=== PATIENT | female | born 1935 | race Caucasian/White ===

== ENCOUNTER 2018-07-08 13:44 | Inpatient (IN) | payer MEDICARE, BC ==
[~2018-07-08] VITALS: Ht 160 cm; Wt 57.0 kg
[2018-07-08] VITALS (25 sets, daily range): BP systolic 78–115; BP diastolic 42–93; BMI 22.4
--- NOTE | ~2018-07-08 | EC ---
PATIENT:KEVIN YOUSSEF DATE OF SERVICE: 07/08/18 SEX: F MEDICAL RECORD: [id number] DATE OF : 35 LOCATION:D. D.212 AGE OF PATIENT: 83 ADMISSION DATE: 07/08/18 REFERRING PHYSICIAN: INTERPRETING PHYSICIAN: FRANCHESKA WEST MD ECHOCARDIOGRAM REPORT ECHO CHARGES 4 ECHO COMPLETE Date: 07/08/18 CLINICAL DIAGNOSIS: AFIB ECHOCARDIOGRAPHIC MEASUREMENTS (adult normal given) AC root (d.<3.7cm) 2.8 cm LV Septum d (<1.2 cm> 1.0 cm Valve Excursion 1.9 cm LV Septum (systole) 1.3 cm Left Atria (s.<4.0cm> 3.5 cm LVPW d(<1.2cm) 0.9 cm RV (d.<2.3cm) 2.5 cm LVPW (sytole) 1.0 cm LV diastole(<5.6CM) 4.0 cm MV E-F(>70mm/sec) cm LV systole 3.1 cm LVOT Diameter 1.7 cm MV exc.(>10mm) cm Est.ejection fraction (50-75%) % DOPPLER: LVIT cm/sec A cm/sec E 74 cm/sec LA cm/sec RVSP 31.4 mmHg LVOT 68 cm/sec AOP1/2T m/s Asc. Ao 89 cm/sec RVOT 46 cm/sec RA cm/sec PA 50 cm/sec AV Gradient Peak 3.2 mmHg AV Mean 1.8 mmHg AV Area 2.3 cm MV Gradient Peak 4.7 mmHg MV Mean 2.0 mmHg MV Area cm COMMENTS: Director Community Health Nursing: [facility] Detention Sergeant: [address] Dr[address] TAPE# PACS Pericardial Effusion N DATE OF SERVICE: 07/08/2018 FINDINGS: 1. Left ventricular chamber size is within normal limits. Left ventricular systolic function is normal. Overall ejection fraction estimated at 55%. 2. Left atrium, right atrium, and right ventricular chamber sizes are within normal limits. 3. Valvular structures have normal structure and motion. 4. Doppler interrogation reveals [id number] mitral regurgitation, [id number] tricuspid regurgitation, mild aortic insufficiency. No other ECHOCARDIOGRAM REPORT [id number] KEVIN YOUSSEF valvular insufficiency or stenosis. 5. No evidence of pericardial effusion or left ventricular thrombus. TRANSINT:[id number] Voice Confirmation ID: [id number] DOCUMENT ID: [id number] FRANCHESKA WEST MD at 1823 CC: [id number] DICTATION DATE: 07/09/18911 RETAIL REPRESENTATIVE: 07/09/18920 DIS IN 07/12/18 [facility] [address] [id number]
--- NOTE | ~2018-07-08 | CN ---
PATIENT NAME:KEVIN ROWLAND MEDICAL RECORD: [id number] : 35 LOCATION:[id number] ADMIT DATE: 07/08/18 ACCOUNT: [id number] CONSULTING PHYSICIAN: FRANCHESKA STEELE MD REFERRING PHYSICIAN: PHUONG GRIGSBY DO DATE OF CONSULTATION: 07/08/2018 DIAGNOSES: 1. Shortness of breath. 2. Chest pain. 3. Atrial fibrillation with rapid ventricular response. 4. History of atrial fibrillation. 5. Multiple myeloma. HISTORY OF PRESENT ILLNESS: Ms. Rowland presents to [facility] with increasing shortness of breath. This has been going on for the past 5-7 days. She was found to be in atrial fibrillation, found to have mild pulmonary edema with an elevated BNP. She has a history of atrial fibrillation. She is only on metoprolol for rate control. She thinks that she is not chronically in atrial fibrillation. She is on Eliquis as well for the atrial fibrillation. She is followed by Dr. Nails in [place] for this. She is not sure that she has ever had a workup for ischemic heart disease. She has been having chest discomfort this week as well. PHYSICAL EXAMINATION: GENERAL APPEARANCE: Well-nourished, well-developed, appears stated age. Level of distress, comfortable. PSYCHIATRIC: Mental status, alert, normal affect. Orientation, oriented to time, place and person. EYES: Lids and conjunctiva, noninjected. No discharge, no pallor. ENT: Lips, teeth, gums, normal dentition. Oropharynx, no cyanosis, no pallor. NECK: Carotid arteries, bilateral normal upstroke, no bruits, no thrills. JUGULAR VEINS: No jugular venous pressure or distention. CERVICAL LYMPH NODES: Nontender, nonenlarged. THYROID: Not enlarged. Nontender. No nodules. LUNGS: Respiratory effort, unlabored. CHEST: Normal curvature. No thoracic deformity. No chest wall tenderness. Percussion, resonant. Auscultation, clear. No wheezes, no rales, no rhonchi. CARDIOVASCULAR: The heart is irregularly irregular, tachycardic with atrial fibrillation. EXTREMITIES: No cyanosis, no edema. Peripheral pulses, full and equal in all extremities, except as noted. No bruits appreciated. ABDOMEN: Soft, nondistended. Normal aorta. No bruit. Nontender. No masses. Liver, nontender, no hepatomegaly. Spleen, nontender, no splenomegaly. MUSCULOSKELETAL: No joint tenderness. No joint swelling. No erythema. NEUROLOGICAL: Normal gait, normal strength, normal tone. SKIN: Warm and dry. OVERALL IMPRESSION: Atrial fibrillation with rapid ventricular response with pulmonary edema and shortness of breath. We will diurese her, start her on sotalol 120 mg b.i.d. and get an echocardiogram to evaluate chamber sizes and evaluate the possible success with cardioversion. If she continues to have chest discomfort, would consider coronary angiography. TRANSINT:[id number] Voice Confirmation ID: [id number] DOCUMENT ID: [id number] CONSULT REPORT [id number] KEVIN ROWLAND JEFFREY MD at 1616 CC: [id number] DICTATION DATE: 07/08/18 1440 [facility]ITY [facility] WORKER: 07/08/18 1452 ADM IN [place] [id number] [place] [id number]
[2018-07-08] MEDS ORDERED: PROTONIX40 MG PO (13:57)
[2018-07-08] MEDS ORDERED: SYNTHROID100 MCG PO (13:57)
[2018-07-08] MEDS ORDERED: ELIQUIS2.5 MG PO (13:58)
[2018-07-08] MEDS ORDERED: METOPROLOL TART50 MG PO (13:58)
[2018-07-08] MEDS ORDERED: ZYRTEC10 MG PO (13:59)
[2018-07-08] MEDS ORDERED: CLARITIN 10 MG10 MG PO (14:00)
[2018-07-08] MEDS ORDERED: COREG12.5 MG PO (14:00)
[2018-07-08] MEDS ORDERED: CYCLOBENZAPRINE10 MG PO (14:00)
[2018-07-08] MEDS ORDERED: ZOVIRAX200 MG PO (14:01)
[2018-07-08] MEDS ORDERED: LASIX20 MG PO (14:01)
[2018-07-08] MEDS ORDERED: KLOR-CON 1010 MEQ PO (14:01)
[2018-07-08] MEDS ORDERED: LEVO-T100 MCG PO (14:02)
[2018-07-08] MEDS ORDERED: OXYCONTIN10 MG PO (14:03)
[2018-07-08 14:55] LABS: BASOPHILS 0.1 % (0-2); EOSINOPHILS 0.1 % (0-7); HEMATOCRIT 41.6 % (36.0-48.0); HEMOGLOBIN 13.9 g/dL (12-16); IMMATURE GRANULOCYTES 0.5 % (0-5); MCH 29.3 pg (26.0-34.0); MCHC 33.4 g/dL (31.0-37.0); MCV 87.8 fL (80.0-100.0); MEAN PLATELET VOLUME 10.8 fL (7.4-10.4); MONOCYTES 4.3 % (2-11); PLATELET COUNT 245 10x3/uL (130-400); RBC 4.74 10x6/uL (4.00-5.40); RDW 13.6 % (11.5-14.5); WBC 16.4 10x3/uL (4.8-10.8)
[2018-07-08 15:04] LABS: APTT 28.7 SECONDS (22.8-39.4); INR 1.05 (0.85-1.17); PROTIME 13.3 SECONDS (11.6-15.0)
[2018-07-08 15:05] LABS: D-DIMER-QUANTITATIVE 0.94 ug/mLFEU (0.20-0.54)
[2018-07-08 15:10] LABS: ALBUMIN 3.6 g/dL (3.4-5.0); ALKALINE PHOSPHATASE 131 U/L (46-116); ALT (SGPT) 194 U/L (10-68); BILIRUBIN - TOTAL 0.48 mg/dL (0.2-1.3); CALC OSMOLALITY 298 mosm/kg (275-300); CALCIUM 9.6 mg/dL (8.5-10.1); CHLORIDE - SERUM 105 mmol/L (98-107); CREATININE - SERUM 1.7 mg/dL (0.6-1.3); GLUCOSE 101 mg/dL (74-106); POTASSIUM - SERUM 3.7 mmol/L (3.5-5.1); PROTEIN - SERUM 7.1 g/dL (6.4-8.2); SODIUM 145 mmol/L (136-145); UREA NITROGEN 40 mg/dL (7-18); eGFR NON AFRICAN AMERICAN 30 mL/min (90-120)
[2018-07-08 15:31] LABS: CKMB 1.4 U/L (0.0-3.6); CREATINE KINASE 37 UL (21-215)
[2018-07-08 15:48] LABS: TROPONIN-I 0.112 ng/mL (0.000-0.060)
[2018-07-08 19:06] LABS: TROPONIN-I 0.089 ng/mL (0.000-0.060)
[2018-07-08 22:22] LABS: TROPONIN-I 0.059 ng/mL (0.000-0.060)
[2018-07-09] VITALS (38 sets, daily range): BP systolic 88–120; BP diastolic 59–96
[2018-07-09 03:13] LABS: BASOPHILS 0.1 % (0-2); EOSINOPHILS 0.5 % (0-7); HEMATOCRIT 37.9 % (36.0-48.0); HEMOGLOBIN 12.4 g/dL (12-16); IMMATURE GRANULOCYTES 0.2 % (0-5); LYMPHOCYTES 10.8 % (15-50); MCH 28.8 pg (26.0-34.0); MCHC 32.7 g/dL (31.0-37.0); MCV 87.9 fL (80.0-100.0); MEAN PLATELET VOLUME 10.7 fL (7.4-10.4); MONOCYTES 16.1 % (2-11); NEUTROPHILS 72.3 % (40-80); PLATELET COUNT 225 10x3/uL (130-400); RBC 4.31 10x6/uL (4.00-5.40); RDW 13.6 % (11.5-14.5); WBC 11.5 10x3/uL (4.8-10.8)
[2018-07-09 03:26] LABS: TROPONIN-I 0.029 ng/mL (0.000-0.060)
[2018-07-09 07:54] LABS: ALBUMIN 3.3 g/dL (3.4-5.0); BILIRUBIN - TOTAL 0.66 mg/dL (0.2-1.3); CARBON DIOXIDE 26.6 mmol/L (21.0-32.0); CREATININE - SERUM 1.3 mg/dL (0.6-1.3); POTASSIUM - SERUM 3.6 mmol/L (3.5-5.1); PROTEIN - SERUM 6.9 g/dL (6.4-8.2); TROPONIN-I 0.03 ng/mL (0.000-0.060)
[2018-07-09 09:09] LABS: BASOPHILS 0 % (0-2); HEMATOCRIT 40.7 % (36.0-48.0); HEMOGLOBIN 13.6 g/dL (12-16); IMMATURE GRANULOCYTES 0.4 % (0-5); LYMPHOCYTES 11.9 % (15-50); MCH 29.2 pg (26.0-34.0); MCHC 33.4 g/dL (31.0-37.0); MCV 87.5 fL (80.0-100.0); MEAN PLATELET VOLUME 11.4 fL (7.4-10.4); MONOCYTES 12.8 % (2-11); NEUTROPHILS 73.9 % (40-80); PLATELET COUNT 247 10x3/uL (130-400); RBC 4.65 10x6/uL (4.00-5.40); RDW 13.8 % (11.5-14.5); WBC 10.4 10x3/uL (4.8-10.8)
[2018-07-10] VITALS (10 sets, daily range): BP systolic 106–128; BP diastolic 46–67
[2018-07-10 11:39] LABS: BASOPHILS 0.1 % (0-2); EOSINOPHILS 1.2 % (0-7); HEMATOCRIT 46.2 % (36.0-48.0); HEMOGLOBIN 15.3 g/dL (12-16); IMMATURE GRANULOCYTES 0.5 % (0-5); LYMPHOCYTES 18.4 % (15-50); MCH 29.7 pg (26.0-34.0); MCHC 33.1 g/dL (31.0-37.0); MEAN PLATELET VOLUME 10.5 fL (7.4-10.4); MONOCYTES 6.3 % (2-11); NEUTROPHILS 73.5 % (40-80); PLATELET COUNT 275 10x3/uL (130-400); RBC 5.15 10x6/uL (4.00-5.40); RDW 13.8 % (11.5-14.5)
[2018-07-10 11:40] LABS: MCV 89.7 fL (80.0-100.0)
[2018-07-10 11:58] LABS: ALBUMIN 3.7 g/dL (3.4-5.0); ANION GAP 14.4 mmol/L (8-16); BILIRUBIN - TOTAL 0.74 mg/dL (0.2-1.3); CALCIUM 9.5 mg/dL (8.5-10.1); CARBON DIOXIDE 29.5 mmol/L (21.0-32.0); POTASSIUM - SERUM 3.9 mmol/L (3.5-5.1)
[2018-07-10 12:00] LABS: CREATININE - SERUM 1.9 mg/dL (0.6-1.3)
[2018-07-10 18:37] LABS: ANION GAP 14.7 mmol/L (8-16); CARBON DIOXIDE 28.7 mmol/L (21.0-32.0); POTASSIUM - SERUM 4.4 mmol/L (3.5-5.1)
[2018-07-11] VITALS (17 sets, daily range): BP systolic 112–138; BP diastolic 45–66; Ht 160 cm; Wt 57.0 kg
[2018-07-11 04:56] LABS: BASOPHILS 0.1 % (0-2); EOSINOPHILS 1.9 % (0-7); HEMATOCRIT 40.4 % (36.0-48.0); HEMOGLOBIN 13.3 g/dL (12-16); IMMATURE GRANULOCYTES 0.4 % (0-5); LYMPHOCYTES 10.2 % (15-50); MCH 29.4 pg (26.0-34.0); MCHC 32.9 g/dL (31.0-37.0); MCV 89.4 fL (80.0-100.0); MONOCYTES 16.5 % (2-11); NEUTROPHILS 70.9 % (40-80); PLATELET COUNT 247 10x3/uL (130-400); RBC 4.52 10x6/uL (4.00-5.40); RDW 13.9 % (11.5-14.5); WBC 10.7 10x3/uL (4.8-10.8)
[2018-07-11 05:22] LABS: ANION GAP 9.2 mmol/L (8-16); BILIRUBIN - TOTAL 0.47 mg/dL (0.2-1.3); CALCIUM 8.6 mg/dL (8.5-10.1); CARBON DIOXIDE 29.7 mmol/L (21.0-32.0); CREATININE - SERUM 1.6 mg/dL (0.6-1.3); DIGOXIN 0.87 ng/mL (0.90-2.00); MAGNESIUM - SERUM 2.5 mg/dL (1.8-2.4); POTASSIUM - SERUM 3.9 mmol/L (3.5-5.1); PROTEIN - SERUM 6.4 g/dL (6.4-8.2); THYROID STIMULATING HORMONE 0.51 uIU/mL (0.36-3.74)
[2018-07-12 05:29] LABS: BASOPHILS 0.1 % (0-2); EOSINOPHILS 2.5 % (0-7); HEMATOCRIT 42.6 % (36.0-48.0); HEMOGLOBIN 13.8 g/dL (12-16); IMMATURE GRANULOCYTES 0.6 % (0-5); LYMPHOCYTES 11.1 % (15-50); MCH 29.1 pg (26.0-34.0); MCHC 32.4 g/dL (31.0-37.0); MCV 89.7 fL (80.0-100.0); MEAN PLATELET VOLUME 10.6 fL (7.4-10.4); MONOCYTES 18.1 % (2-11); NEUTROPHILS 67.6 % (40-80); PLATELET COUNT 258 10x3/uL (130-400); RBC 4.75 10x6/uL (4.00-5.40); WBC 10.4 10x3/uL (4.8-10.8)
[2018-07-12 06:25] LABS: ALBUMIN 3.2 g/dL (3.4-5.0); ANION GAP 13.9 mmol/L (8-16); BILIRUBIN - TOTAL 0.73 mg/dL (0.2-1.3); CALCIUM 8.9 mg/dL (8.5-10.1); CARBON DIOXIDE 27.1 mmol/L (21.0-32.0); CREATININE - SERUM 1.5 mg/dL (0.6-1.3); MAGNESIUM - SERUM 2.6 mg/dL (1.8-2.4); PROTEIN - SERUM 6.9 g/dL (6.4-8.2)
[2018-07-12 06:56] VITALS: BP 127/54
[2018-07-12 08:21] VITALS: BP 131/59
[2018-07-12 11:23] VITALS: BP 127/58
[2018-07-12] MEDS ORDERED: ZOVIRAX200 MG PO (12:31)
[2018-07-12] MEDS ORDERED: LANOXIN125 MCG PO (12:32)
[2018-07-12] MEDS ORDERED: PACERONE200 MG PO (12:32)
[2018-07-12 15:39] VITALS: BP 122/63
== END 2018-07-12 16:23 | disposition home or self-care (01) | DRG 308 ==
LOC: D.ER 13:44 → D.M2 15:21 → D.ICU 15:21 → D.M2 07-09 18:02 → D.CVICU 07-10 16:28 → D.M2 07-11 15:05
PROVIDERS: Family Medicine; Internal Medicine Interventional Cardiology
DX: I48.2 Chronic atrial fibrillation (principal); N17.0 Acute kidney failure with tubular necrosis; N17.9 Acute kidney failure, unspecified; E03.9 Hypothyroidism, unspecified; Z85.79 Personal history of other malignant neoplasms of lymphoid, hematopoietic and related tissues; I10 Essential (primary) hypertension